=== PATIENT | male | born 2000 | race Caucasian/White ===

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

== ENCOUNTER 2018-04-14 19:04 | Emergency (ER) | payer OTHER, MEDICAID ==
[~2018-04-14] VITALS: Ht 167.6 cm; Wt 106.6 kg
[2018-04-14 19:09] VITALS: BP 144/73
--- NOTE | 2018-04-14 19:09 | NUR ---
PATIENT AMBULATED TO BED 10.
--- NOTE | 2018-04-14 19:10 | NUR ---
Dr. Cannon evaluating patient at bedside.
[2018-04-14] MEDS ORDERED: ALBUTEROL SULFATE/IPRATROPIU 3 ML SOL IH ONE (19:15)
[2018-04-14] MEDS ORDERED: NACL 0.9% 1,000 ML IV ONE (19:15)
[2018-04-14] MEDS ORDERED: MAG SULF 2000 MG/WATER PREMIX 50 ML IV ONE (19:15)
[2018-04-14] MEDS ORDERED: methylPREDNISolone SS 125 MG/2 ML VIAL IVP ONE (19:15)
--- NOTE | 2018-04-14 19:21 | NUR ---
Respiratory Therapist at bedside for respiratory intervention.
--- NOTE | 2018-04-14 19:29 | NUR ---
REPORT TO YFN HARRISON, TRANSFER OF CARE AT THIS TIME
[2018-04-14 21:38] VITALS: BP 112/82
--- NOTE | 2018-04-14 21:38 | NUR ---
Patient discharged with v/s stable. Written and verbal after care instructions given and explained. Patient alert, oriented and verbalized understanding of instructions. Ambulatory with steady gait. All questions addressed prior to discharge. ID band removed. Patient advised to follow up with PMD. Rx of Prednisone, Albuterol, Advair, MiniElite Standard Compressor Nebulizer System given. Patient educated on indication of medication including possible reaction and side effects. Opportunity to ask questions provided and answered.
== END 2018-04-14 21:38 | disposition home or self-care (01) ==
LOC: MED 19:04
DX: J45.901 Unspecified asthma with (acute) exacerbation (principal); Z79.899 Other long term (current) drug therapy; Z88.0 Allergy status to penicillin; Z88.1 Allergy status to other antibiotic agents
CPT/HCPCS: 87804; 94640; 94760; 96365; 96366; 96375; 99283; J2930; J3475; J7030; J7620; 36415

== ENCOUNTER 2018-04-18 14:54 | Emergency (ER) | payer MEDICAID, OTHER ==
--- NOTE | 2018-04-18 15:44 | NUR ---
PATIENT CALLED FOR TRIAGE, PATIENT LEFT WITHOUT BEING SEEN BY DR. NELSON. NO FURTHER CARE PROVIDED FOR PATIENT.
== END 2018-04-18 15:44 | disposition left against medical advice (07) ==
LOC: MED 14:54
DX: R06.02 Shortness of breath (principal); Z53.21 Procedure and treatment not carried out due to patient leaving prior to being seen by health care provider